=== PATIENT | female | born 1990 | race Caucasian/White ===

== ENCOUNTER 2020-09-12 19:58 | Emergency (ER) | payer SELFPAY ==
[~2020-09-12 19:58] MED LIST: NO HOME MEDS
== END 2020-09-12 21:41 | disposition left against medical advice (07) ==
LOC: ER 19:58
DX: K08.89 Other specified disorders of teeth and supporting structures (principal); Z53.21 Procedure and treatment not carried out due to patient leaving prior to being seen by health care provider